=== PATIENT | female | born 1995 | race Caucasian/White ===

== ENCOUNTER 2019-03-10 14:01 | Observation (INO) ==
[2019-03-10] MEDS ORDERED: Lactated Ringers-OB Dept 1,000 ML ONE (14:28)
[2019-03-10 14:44] LABS: BASOPHILS # (AUTO) 0.03 10*3/UL; BASOPHILS % (AUTO) 0.3 % (0-1); EOSINOPHILS # (AUTO) 0.26 10*3/UL; EOSINOPHILS % (AUTO) 2.4 % (0-8); Hemoglobin [HGB] 11.6 g/dL (12.0-16.0); LYMPHOCYTES # (AUTO) 2.75 10*3/uL; MEAN CORPUSCULAR HGB CONC 33.1 g/dL (33-37); MEAN CORPUSCULAR VOLUME 90.2 FL (81-99); MEAN PLATELET VOLUME 9.7 FL (7.4-12.2); MONOCYTES # (AUTO) 0.71 10*3/UL (0.3-0.8); MONOCYTES % (AUTO) 6.5 % (5-15); NEUTROPHILS # (AUTO) 7.07 10*3/UL; NEUTROPHILS % (AUTO) 64.6 % (50-80); RED BLOOD COUNT 3.88 10^6/uL (4.20-5.40)
[2019-03-10] MEDS: Lactated Ringers 1,000 ML PRIMARY IV ONE ×2 (14:45→16:44)
[2019-03-10 14:47] LABS: PLATELET MORPHOLOGY COMMENT NORMAL MORPHOLOGY (NORM); RBC MORPHOLOGY COMMENT NORMAL MORPHOLOGY (NORM); WBC MORPHOLOGY COMMENT NORMAL MORPHOLOGY (NORM)
[2019-03-10 15:01] LABS: AMNI ROM NEGATIVE (NEGATIVE)
[2019-03-10 15:05] LABS: URINE SAMPLE TYPE CLEAN CATCH URINE
[2019-03-10 15:23] LABS: BLOOD UREA NITROGEN 5 mg/dL (7-22); SERUM ALBUMIN 3.2 g/dL (3.5-4.8); Uric Acid 4.4 mg/dl (2.5-6.2)
[2019-03-10 15:27] LABS: HIV ANTIBODY NEGATIVE (N); HIV-1 P24 ANTIGEN NEGATIVE (N)
[2019-03-10 15:27] LABS: BILIRUBIN,URINE NEGATIVE (NEG); CLARITY,URINE CLEAR (CLEAR); COLOR,URINE YELLOW (Y); GLUCOSE, URINE (UA) NEGATIVE (NEG); OCCULT BLOOD,URINE NEGATIVE (NEG); PH,URINE 6.5 (5.0-8.5); PROTEIN,URINE NEGATIVE (NEG); UROBILINOGEN,URINE 0.2 EU/dL (0.2)
[2019-03-10 15:45] LABS: URINE SAMPLE TYPE CLEAN CATCH URINE
[2019-03-10] MEDS: NIFEdipine 10 MG CAPSULE PO SCH ×3 (16:00→16:41)
[2019-03-10] MEDS ORDERED: BETAMET ACET/BETAMET NA PH 6 MG/1 ML - 5 ML ONE (16:04)
[2019-03-10] MEDS ORDERED: LIDOCAINE W/ SODIUM BICARB 0.5 ML SYR SUBD PRN (16:14)
[2019-03-10] MEDS ORDERED: CALCIUM CARBONATE 500 MG (TUMS) CHEWABLE TABLET PO PRN (16:14)
[2019-03-10] MEDS ORDERED: Ondansetron ODT Tab 4 MG TAB PO PRN (16:14)
[2019-03-10] MEDS ORDERED: ONDANSETRON 4 MG/2 ML VIAL IVP PRN (16:14)
[2019-03-10] MEDS ORDERED: BETAMET ACET/BETAMET NA PH 6 MG/1 ML - 5 ML IM SCH (16:15)
[2019-03-10] MEDS ORDERED: ACETAMINOPHEN 325 MG TABLET PO PRN (16:21)
[2019-03-10] MEDS ORDERED: TERBUTALINE SULFATE 1 MG/1 ML SDV SUBCUT PRN (16:21)
[2019-03-10] MEDS ORDERED: Lactated Ringers 500 ML PRIMARY IV ONE (16:43)
[2019-03-10] MEDS ORDERED: CALCIUM GLUCONATE 100 MG/1 ML - 10 ML IVP PRN (16:52)
[2019-03-10] MEDS ORDERED: Magnesium Sulfate 4gm (Premix) 4 GM/100 ML BAG IV ONE (16:52)
[2019-03-10] MEDS ORDERED: LIDOCAINE HCL 2 % 10 ML JELLY URO-JECT TOPICAL PRN (16:56)
[2019-03-10] MEDS ORDERED: Magnesium Sulfate (Premix) 20 GM/500 ML BAG IV SCH (17:00)
[2019-03-10] MEDS ORDERED: fentaNYL Inj 100 MCG/2 ML VIAL IVP ONE ×2 (17:26→18:17)
[2019-03-10] MEDS ORDERED: fentaNYL Inj 100 MCG/2 ML VIAL ONE (17:27)
[2019-03-10 19:03] LABS: AMNI ROM NEGATIVE (NEGATIVE)
[2019-03-10] MEDS ORDERED: LABETALOL 20 MG/4 ML (5 MG/1 ML) SYRINGE IVP STA (19:29)
[2019-03-10] MEDS ORDERED: LORazepam 2 MG/1 ML VIAL ONE (20:43)
[2019-03-10] MEDS ORDERED: PENICILLIN G POTASSIUM 5,000,000 UNIT SDV IV ONE (21:00)
[2019-03-10] MEDS ORDERED: Sodium Chloride 0.9% 100 ML IV ONE (21:00)
[2019-03-11] MEDS ORDERED: Prenatal Multivitamin Tab 1 TAB TAB PO SCH (09:00)
== END 2019-03-10 21:20 | disposition short-term general hospital (02) ==
LOC: OBOP 14:01 → OBIP 14:01
PROVIDERS: ADMIT Student in an Organized Health Care Education/Training Program; ATTEND Student in an Organized Health Care Education/Training Program